=== PATIENT | male | born 2000 | race African-American/Black ===

== ENCOUNTER 2022-08-15 19:57 | Emergency (ER) | payer MEDICAID ==
[~2022-08-15] VITALS: Ht 182.9 cm; Wt 70.0 kg
[2022-08-15] MEDS ORDERED: ONDANSETRON HCL 4MG/2ML INJ IV ONE (20:30)
[2022-08-15] MEDS ORDERED: ACETAMINOPHEN 325MG TABLET PO ONE (20:45)
[2022-08-15 21:40] LABS: BG BASE EXCESS -0.4 mmol/L (-2.0-2.0); BG CARBOXYHEMOGLOBIN 0.4 % (0.5-1.5); BG HCO3 ACT 25.4 mmol/L (22.0-26.0); BG METHEMOGLOBIN 0.3 % (0.0-1.5); BG OXYHEMOGLOBIN 96.3 % (94.0-97.0); BG PCO2 45.7 mmHg (35.0-45.0); BG PH 7.363 (7.350-7.450); BG PO2 92.7 mmHg (75.0-100.0); BG SAMPLE SITE RIGHT RADIAL; BG TOTAL HEMOGLOBIN 16.7 g/dL (12.0-18.0); BG VENT MODE ROOM AIR
[2022-08-15 21:48] LABS: HEMATOCRIT. 45.7 % (42.0-52.0); HEMOGLOBIN. 15.7 g/dL (14.0-18.0); MEAN CORPUSCULAR HEMOGLOBIN 30.5 pg (28.0-32.0); MEAN CORPUSCULAR VOLUME 88.6 fL (80.0-94.0); MEAN PLATELET VOLUME 8.8 fl (7.4-10.4); PLATELET 200 x1000/uL (130-400); RED BLOOD CELL COUNT 5.16 mill/uL (4.7-6.1); RED CELL DISTRIBUTION WIDTH 12.4 % (11.6-14.6)
[2022-08-15 21:50] LABS: CHLORIDE 104 mEq/L (98-107)
[2022-08-15 21:52] LABS: INR 1.1; PROTHROMBIN TIME 11.8 sec (9.6-11.0)
[2022-08-15 22:00] LABS: ETHANOL BLOOD < 10 mg/dL
[2022-08-15] MEDS ORDERED: TETRACAINE 0.5% OPHTH DROPS 4ML LEFTEYE ONE (22:15)
[2022-08-15] MEDS ORDERED: FLUORESCEIN SODIUM 1MG/STRIP LEFTEYE ONE (22:15)
[2022-08-15] MEDS ORDERED: HYDR-4001 MT (22:56)
[2022-08-15] MEDS ORDERED: ONDA4TAB50 MT (22:56)
[2022-08-15] MEDS ORDERED: MORPHINE SULFATE 4 MG/ML CPJ (NOT FOR IM USE) IV ONE (23:00)
[2022-08-15 23:02] VITALS: BP 132/61
[2022-08-16 05:32] LABS: PLATELET ESTIMATE NORMAL
[2022-08-16] MEDS ORDERED: IOHEXOL-350 100 ML BOTTLE ONE (07:02)
== END 2022-08-15 23:50 | disposition home or self-care (01) ==
LOC: ER 19:57
DX: S06.0X0A Concussion without loss of consciousness, initial encounter (principal); S05.12XA Contusion of eyeball and orbital tissues, left eye, initial encounter; Y08.89XA Assault by other specified means, initial encounter; Y93.89 Activity, other specified; Y92.89 Other specified places as the place of occurrence of the external cause; Y99.8 Other external cause status; J45.909 Unspecified asthma, uncomplicated; F12.10 Cannabis abuse, uncomplicated
CPT/HCPCS: 36415; 36600; 70450; 70486; 70496; 70498; 71045; 72125; 80053; 80320; 82375; 82805; 84484; 85025; 85610; 93005; 96374; 96375; 99285; J2270; J2405; Q9967; Z7610; G0480